=== PATIENT | female | born 1990 | race Caucasian/White ===

== ENCOUNTER → 2017-11-17 | Outpatient (CLI) | payer OTHER | LOC: FIMAGING 12:05 | PROVIDERS: ATTEND Advanced Practice Midwife | DX: O48.0 Post-term pregnancy (principal); Z3A.41 41 weeks gestation of pregnancy ==

== ENCOUNTER 2017-11-19 19:58 | Inpatient (IN) | payer OTHER ==
[2017-11-19] MEDS ORDERED: TERBUTALINE SULFATE 1 MG/ML VIAL IV PRN (20:09)
[2017-11-19] MEDS ORDERED: IBUPROFEN 600 MG TAB PO PRN (20:09)
[2017-11-19] MEDS ORDERED: LR 1,000 ML IV PRN (20:09)
[2017-11-19] MEDS ORDERED: EPSOM SALT 454 GM TP PRN (20:09)
[2017-11-19] MEDS ORDERED: OLIVE OIL 118 ML BTL MISC PRN (20:09)
[2017-11-19] MEDS ORDERED: OXYTOCIN/RINGERS LACTATE 1,000 ML IV PRN (20:09)
[2017-11-19] MEDS ORDERED: MISOPROSTOL 200 MCG TAB PR PRN (20:09)
[2017-11-19] MEDS ORDERED: LIDOCAINE 1% 300 MG/30 ML SDV SC PRN (20:09)
--- NOTE | 2017-11-19 20:11 | PDGENHP ---
History and Physical History and Physical: Care: [facility] HPI: Patient is a 27 yo with IUP@41-3 weeks that presents to L&D from [facility] for pain relief. She has been frantz regularly x 2 days. She has been a patient at the center x 2 nights. She desires pain relief at this time. SROM was noted at 0645, ?light MSF. She was last noted to be . EDC: 11/09/17 which is based on LMP: 02/01/2017 which is known and consistent with Ultrasound at 12weeks. Her is complicated by: hypothyroid, GELA @ 30wks (from [place]) Review of Systems: Constitutional: Denies any fever, chills, or fatigue HEENT: denies any visual changes, difficulty swallowing, hearing loss Cardiovascular: Denies any chest pain, palpitations, leg swelling Respiratory: denies any cough, wheezing, or shortness of breathe GI: Denies any nausea, vomiting, diarrhea, constipation, +abdominal pain with contractions : denies any dysuria, urgency, frequency, vaginal bleeding Musculoskeletal: denies any muscle or bone pain Skin: denies any rashes Neuro: denies any headache, seizures, lightheadedness, dizziness, or loss of consciousness Psychiatric: denies any depression, anxiety, or SI/HI thoughts HISTORY: Previous OB history: G1 Past medical history: hypothyroid Past surgical history: none Social: Denies any alcohol, tobacco, or drug use. Family history: father - HTN Medications: PNV, iron Allergies (list reaction): NKDA LABS: Rh: O+ ABS: Neg Rubella: Immune HbsAg: NR HIV: NR VDRL: NR 1hr: 100 GC: Neg Chlamydia: Neg Pap: Normal GBS: negative PHYSICAL EXAM: Constitutional: WN, A&Ox3 HEENT: normocephalic atraumatic, supple Skin: Warm, dry, intact Heart: RRR, no murmur Chest: CTA-B Abdomen: Soft, nontender, gravid SVE: deferred (/, per CNM from [facility]) Extremities: trace edema, negative homans sign Neuro: grossly normal Psych: normal affect assessment: FHT baseline 150 +accels, variable decels, moderate variability Contractions: toco q 2-5 Assessment: 1) [id number] with IUP@41-3wks 2) ?protracted labor 3) GBS negative 4) Cat 1 FHR tracing Plan: 1) Admit to L&D 2) DESIRE per pt request 3) pitocin PRN 4) anticipate Today's visit was approximately 30 min, of which >50% of visit 20 min, was spent face to face with pt on direct counseling/coordination of care.
[2017-11-19 20:26] LABS: PLATELET COUNT 210 10^3/uL (150-400)
[2017-11-19] MEDS ORDERED: OLIVE OIL 118 ML BTL ONE (20:38)
[2017-11-19] MEDS ORDERED: AMMONIA AROMATIC 1 EACH AMP IH ONE (20:38)
[2017-11-19] MEDS ORDERED: OXYTOCIN 10 UNIT/ML VIAL ONE (20:38)
[2017-11-19] MEDS ORDERED: LIDOCAINE 1% 300 MG/30 ML SDV ONE (20:38)
[2017-11-19] MEDS ORDERED: TERBUTALINE SULFATE 1 MG/ML VIAL ONE (20:38)
[2017-11-19] MEDS ORDERED: MISOPROSTOL 200 MCG TAB ONE (20:39)
[2017-11-19] MEDS ORDERED: fentaNYL 100 MCG/2 ML INJ ONE (21:04)
[2017-11-19] MEDS ORDERED: fentaNYL 2MCG/ML/BUP 0.1% RTU 100 ML BAG EP ONE (21:15)
[2017-11-19] MEDS ORDERED: BUPIVACAINE 0.25% 30 ML SDV ONE (21:15)
[2017-11-19] MEDS ORDERED: PHENYLEPHRINE HCL 100 MCG/ML SYR ONE (21:15)
[2017-11-19] MEDS ORDERED: PHENYLEPHRINE HCL 100 MCG/ML SYR IVP PRN (21:51)
[2017-11-19] MEDS ORDERED: ONDANSETRON 4 MG/2 ML VIAL IVP PRN (21:51)
[2017-11-19] MEDS ORDERED: NALOXONE HCL 0.4 MG/ML INJ IVP PRN (21:51)
[2017-11-19] MEDS ORDERED: METOCLOPRAMIDE 10 MG/2 ML VIAL IVP PRN (21:51)
--- NOTE | 2017-11-19 21:59 | PREANESOB ---
Obstetric Pre-Anesthesia Info - General Info Proposed Procedure: cse for L and - Info Status: Full Term Monitors: External - Labor Status Cervical Dilation per last OB SVE: 6 Amniotic Fluid Color: Clear Magnesium Sulfate in Use: No Indications for Labor Analgesia: Augmentation of Labor, Pain Control Labor Epidural: Proposed Anesthesia ROS: hypothyroid Allergies/Adverse Reactions: Allergy/AdvReac Type Severity Reaction Status Date / Time No Known Allergies Allergy Unverified 11/19/17 20:09 Home Medications: Medication Instructions Recorded Synthroid 11/19/17 Visit Medications: Generic Name Dose Route Start Last Admin Trade Name Freq PRN Reason Stop Dose Admin Diphenhydramine HCl 25 - 50 mg 11/19/17 21:51 Benadryl Injection IVP 05/18/18 21:50 Q6HRS PRN Itching Lactated Ringer's 1,000 mls @ 0 mls/hr 11/19/17 20:09 Lr IV 11/20/17 20:08 PRN PRN SEE PROTOCOL CONDITIONS Protocol Per Protocol Oxytocin/Lactated Ringer's 1,000 mls @ 125 mls/hr 11/19/17 20:09 Pitocin 20 Units/Lr (Premix) IV PRN PRN Post bleeding Fentanyl/Bupivacaine HCl 100 mls @ 0 mls/hr 11/19/17 22:00 Fentanyl/Bupivacaine/Ns 2 Mcg/Ml 0.1% (Premix EP 11/29/17 21:59 CONT DEREK Protocol As Directed Lactated Ringer's 500 mls @ 0 mls/hr 11/19/17 22:00 Lr IV 05/18/18 21:59 CONT DEREK As Directed Ibuprofen 600 mg 11/19/17 20:09 Motrin PO ONCE PRN post , pain Lidocaine HCl 300 mg 11/19/17 20:09 Lidocaine Hcl 1% SC 05/18/18 20:08 ONCE PRN episiotomy Magnesium Sulfate 454 gm 11/19/17 20:09 Epsom Salt TP 05/18/18 20:08 Q1H PRN perineal discomfort Metoclopramide HCl 20 mg 11/19/17 21:51 Reglan Injection IVP 05/18/18 21:50 Q6HRS PRN Nausea/Vomiting, Can't Take PO Misoprostol 800 - 1,000 mcg 11/19/17 20:09 Cytotec MS ONCE PRN Vaginal Atony/Bleeding Naloxone HCl 0.4 mg 11/19/17 21:51 Narcan IVP 05/18/18 21:50 PRN PRN Respiratory depression [place] Oil 118 ml 11/19/17 20:09 Sweet Oil MISC 05/18/18 20:08 ONCE PRN perineal massage Ondansetron HCl 4 mg 11/19/17 21:51 Zofran IVP 11/20/17 21:50 Q4HRS PRN Nausea/Vomiting, Can't Take PO Phenylephrine HCl 100 mcg 11/19/17 21:51 Neosynephrine IVP 05/18/18 21:50 .Q2M PRN Hypotension Terbutaline Sulfate 0.25 mg 11/19/17 20:09 Brethine IV 05/18/18 20:08 ONCE PRN Tachysystole Discontinued Medications Generic Name Dose Route Start Last Admin Trade Name Freq PRN Reason Stop Dose Admin Ammonia (Aromatic Spirit) Confirm 11/19/17 20:38 Ammonia Aromatic Administered 11/19/17 20:39 Dose 1 each IH .STK-MED ONE Bupivacaine HCl Confirm 11/19/17 21:15 Sensorcaine 0.25% Sdv Administered 11/19/17 21:16 Dose 30 ml .ROUTE .STK-MED ONE Fentanyl Confirm 11/19/17 21:04 Sublimaze Administered 11/19/17 21:05 Dose 100 mcg .ROUTE .STK-MED ONE Fentanyl/Bupivacaine HCl Confirm 11/19/17 21:15 Fentanyl/Bupivacaine/Ns 2 Mcg/Ml 0.1% (Premix Administered 11/19/17 21:16 Dose 100 ml EP .STK-MED ONE Lidocaine HCl Confirm 11/19/17 20:38 Lidocaine Hcl 1% Administered 11/19/17 20:39 Dose 300 mg .ROUTE .STK-MED ONE Misoprostol Confirm 11/19/17 20:39 Cytotec Administered 11/19/17 20:40 Dose 1,000 mcg .ROUTE .STK-MED ONE [place] Oil Confirm 11/19/17 20:38 Sweet Oil Administered 11/19/17 20:39 Dose 118 ml .ROUTE .STK-MED ONE Oxytocin Confirm 11/19/17 20:38 Pitocin Administered 11/19/17 20:39 Dose 40 unit .ROUTE .STK-MED ONE Phenylephrine HCl Confirm 11/19/17 21:15 Neosynephrine Administered 11/19/17 21:16 Dose 1,000 mcg .ROUTE .STK-MED ONE Terbutaline Sulfate Confirm 11/19/17 20:38 Brethine Administered 11/19/17 20:39 Dose 1 mg .ROUTE .STK-MED ONE - Anesthesia History Response to Local Anesthetics: Normal Anesthesia & Operative History: No Prior Problems Family Anesthesia History: Negative - Focused Exam Neck exam: FROM Mallampati Score: Class 2 Mouth exam: normal dental/mouth exam Pulmonary: no respiratory distress Cardiovascular: regular rate and rhythym Labs: 11/19/17 20:00 Patient ABO/Rh O POSITIVE 11/19/17 20:35 - Plan Consent Signed and on Chart: Yes Patient/Guardian Understands and Agrees to Plan: Yes Urgent/Emergent Case: Corine felix completed preop but documented later for safe timely pt care General Comments: from labor center
[2017-11-19] MEDS ORDERED: fentaNYL 2MCG/ML/BUP 0.1% RTU 100 ML EP SCH (22:00)
[2017-11-19] MEDS ORDERED: LR 500 ML IV SCH (22:00)
--- NOTE | 2017-11-19 23:48 | OBPROG ---
Labor Progress Note Assessment/Plan: Assessment: [id number] with IUP@41-3 protracted labor [address]IRE in place cat 2 FHR tracing GBS Negative ?MSF Plan: expectant management Reassess 1-2 hr/PRN anticipate 11/19/17 23:45 Objective: 11/19/17 20:00 Patient ABO/Rh O POSITIVE 11/19/17 20:35 - SVE Dilation (cm): 8 Effacement (%): 90 Station: 0 Membranes: SROM Amniotic Fluid Color: Clear - Contraction Pattern Assessment Current Contraction Pattern: Regular - FHR Assessment Aleman FHR (bpm): 155 FHR Pattern Variability: Moderate FHR Category: 2 Oxytocin Orders Assessment - Pre-Induction/Augmentation Assessment Gestational Age: 41 week(s) and 3 day(s) ICD10 Worksheet Patient Problems: Problems Problem Status Onset Labor difficulty Acute Labor with prolonged first stage, antepartum Acute Labor, prolonged Acute - ICD10 Problem Qualifiers (1) Labor difficulty (2) Labor with prolonged first stage, antepartum (3) Labor, prolonged
[2017-11-20] MEDS ORDERED: SIMETHICONE 80 MG TAB CHEW PO PRN (02:10)
[2017-11-20] MEDS ORDERED: HYDROCORTISONE 0.5% CREAM TP PRN (02:10)
--- NOTE | 2017-11-20 02:10 | OBDEL ---
Info Type: Vaginal Presentation at Delivery: Vertex L&D Analgesia/Anesthesia Type: Epidural GBS+: No Intrapartum Medications: Discontinued Medications Generic Name Dose Route Start Last Admin Trade Name Marry PRN Reason Stop Dose Admin Ibuprofen 600 mg 11/19/17 20:09 11/20/17 01:24 Motrin PO 600 mg ONCE PRN Administration post , pain Indications for Delivery: Spontaneous Labor, SROM Vaginal Delivery - Delivery Provider Delivery Physician/CNM: Radha Aranda - Labor and Delivery Onset of Contractions Date: 11/19/17 Onset of Contractions Time: 12:00 Onset of Contractions Type: Spontaneous Rupture of Membranes Date: 11/19/17 Rupture of Membranes Time: 06:45 Rupture of Membranes Type: Spontaneous Amniotic Fluid Color: Meconium Stained Dilation Complete Date: 11/20/17 Dilation Complete Time: 23:57 Placenta Delivery Date: 11/20/17 Placenta Delivery Time: 00:38 Total Hours of Labor: 12 Repair: 3-0, Vicryl Vaginal Sponge Count Correct: Yes Vaginal Needle Count Correct: Yes Vaginal Sweep Performed: Yes EBL: 300 Delivery Events: Nuchal Cord - Medications Labor Augmentation/Induction Methods Used: Pitocin Data BRETT: 11/09/17 Gestational Age: 41 week(s) and 4 day(s) [place] Delivery Date: 11/20/17 Delivery Time: 00:29 Sex of : Female Score (1 Min): 8 Score (5 Min): 9 ICD10 Worksheet Patient Problems: Problems Problem Status Onset Labor difficulty Acute Labor with prolonged first stage, antepartum Acute Labor, prolonged Acute Meconium in amniotic fluid Acute (spontaneous vaginal delivery) Acute - ICD10 Problem Qualifiers (1) Labor difficulty (2) Labor with prolonged first stage, antepartum (3) Labor, prolonged (4) (spontaneous vaginal delivery) (5) Meconium in amniotic fluid
[2017-11-20] MEDS: ACETAMINOPHEN 325 MG TAB PO SCH ×4 (04:31→19:56)
[2017-11-20] MEDS: IBUPROFEN 600 MG TAB PO SCH ×3 (08:15→19:56)
[2017-11-20] MEDS: FERROUS SULFATE 325 MG TAB PO SCH (08:16)
[2017-11-20] MEDS: DOCUSATE SODIUM 100 MG CAP PO PRN ×2 (08:17→19:56)
[2017-11-21] MEDS: ACETAMINOPHEN 325 MG TAB PO SCH ×3 (01:53→14:25)
[2017-11-21] MEDS: IBUPROFEN 600 MG TAB PO SCH ×3 (01:53→14:25)
--- NOTE | 2017-11-21 06:46 | POSTANESTH ---
Post Anesthetic Evaluation Cardiovascular Status: Normal, Stable Respiratory Status: Normal, Stable Level of Consciousness/Mental Status: Can Participate in Eval Pain Control: Adequate, Prn Tx Ordered Nausea/Vomiting Control: Adequate, Prn Tx Ordered Complications Possibly Related to Anesthesia: None Noted
[2017-11-21] MEDS: FERROUS SULFATE 325 MG TAB PO SCH (08:16)
[2017-11-21] MEDS: DOCUSATE SODIUM 100 MG CAP PO PRN (08:16)
[2017-11-21 09:22] VITALS: BP 108/73
--- NOTE | 2017-11-21 11:56 | OBPP ---
Progress Note Assessment/Plan: Assessment: Stable PPD 1; Mild anemia based on admission CBC. Heart palpitations twice when ambulating. Suspect this is related to maternal exhaustion as well as anemia. Establishing Plan: 1) CBC to assess further for anemia. 2) Continue vitamin and start ferrrous fumerate 2 x daily based on initial CBC. This recommendation may change after the CBC result is in. 3) Discharge home today as long as pt continues to be able to ambulate ok. Has lots of family support at home 4) Follow up with center as planned. May schedule visits with us as she would like 11/21/17 11:59 Subjective/ Course: 11/21/17 11:53 Pt very happy with experience at the hospital. Reports having a very long that rapidly progressed once she arrived at the hospital and got an epidural. Baby is latching well and nursing frequently. Pain well controlled with ibuprofen and tylenol. Is having a difficult time resting in the pp bed stating its uncomfortable and difficult to get into. She also reports having a couple fo episodes of heart palpitations as she is ambulating from the bed to the bathroom and back. She has had very little sleep all week long due to a prolonged labor and difficulty sleeping in this bed. She would like to discharge home today. She is a pt of the center and has a follow up scheduled for a 1 week visit. Baby will be seen by the computer programming manager on Friday. 11/21/17 11:55 Objective: 11/19/17 20:00 Patient ABO/Rh O POSITIVE 11/19/17 20:35 Temp Pulse Resp BP Pulse Ox 36.2 C 75 16 108/73 96 11/21/17 08:00 11/21/17 08:00 11/21/17 08:00 11/21/17 08:00 11/21/17 08:00 Breasts: Nipples intact bilaterally, soft See initial H & H on admission Uterine Position/Fundal Height: Umbilicus -1 Uterine Tone: Firm
--- NOTE | 2017-11-21 12:08 | OBGCSDC ---
General Delivery Information - General Info : 1 Para: 1 Abortions: 0 Type: Vaginal L&D Analgesia/Anesthesia Type: Epidural Admission Date: 11/19/17 Labs: Patient ABO/Rh O POSITIVE 11/19/17 20:35 Hct 35.7 % (38.0-47.0) L 11/19/17 20:00 - Hospital Course : 11/21/17 11:53 Pt very happy with experience at the hospital. Reports having a very long that rapidly progressed once she arrived at the hospital and got an epidural. Baby is latching well and nursing frequently. Pain well controlled with ibuprofen and tylenol. Is having a difficult time resting in the pp bed stating its uncomfortable and difficult to get into. She also reports having a couple fo episodes of heart palpitations as she is ambulating from the bed to the bathroom and back. She has had very little sleep all week long due to a prolonged labor and difficulty sleeping in this bed. She would like to discharge home today. She is a pt of the center and has a follow up scheduled for a 1 week visit. Baby will be seen by the floating derrick operator on Friday. 11/21/17 11:55 Vaginal - Delivery Provider Delivery Physician/CNM: Radha Aranda - Diagnosis Labor: Spontaneous Rupture of Membranes Type: Spontaneous Amniotic Fluid Color: Meconium Stained Repair: 3-0, Vicryl Delivery Events: Nuchal Cord - Delivery EBL: 300 Data BRETT: 11/09/17 Gestational Age: 41 week(s) and 5 day(s) [place] Delivery Date: 11/20/17 Delivery Time: 00:29 Sex of : Female Score (1 Min): 8 Score (5 Min): 9 Discharge Information - Discharge Information Condition: Good Instruction/Follow Up: One Week (Follow up with Center or may follow up with [facility] [place] [facility] at 2/4/6 weeks)
[2017-11-21 14:20] LABS: PLATELET COUNT 192 10^3/uL (150-400)
== END 2017-11-21 18:15 | disposition home or self-care (01) | DRG 775 ==
LOC: FLD 19:58 → FOB 11-20 03:28
PROVIDERS: ADMIT Advanced Practice Midwife; ATTEND Advanced Practice Midwife
PROC: 10E0XZZ Delivery of Products of Conception, External Approach (ICD-10-PCS; principal; 2017-11-20)
DX: O63.0 Prolonged first stage (of labor) (principal); Z37.0 Single live birth; Z3A.41 41 weeks gestation of pregnancy; O69.82X0 Labor and delivery complicated by other cord entanglement, without compression, not applicable or unspecified; O99.284 Endocrine, nutritional and metabolic diseases complicating childbirth; E03.9 Hypothyroidism, unspecified
CPT/HCPCS: J2370; J2590; J3010; J3105